=== PATIENT | male | born 1955 | race Caucasian/White ===

== ENCOUNTER 2021-05-30 09:08 | Outpatient (CLI) | payer OTHER, SELFPAY ==
--- NOTE | 2021-05-30 09:23 | MR_ITS ---
WS: [id number] MRI LUMBAR SPINE NONCONTRAST TECHNIQUE: Sagittal T1, T2 and STIR imaging. Axial T1 and T2 imaging. CLINICAL INFORMATION: VERTEBROGENIC LOW BACK PAIN COMPARISON: None. FINDINGS: Mild lumbar curve. No acute compression. Mild disc bulging and osteophytic ridging L3-L4 L4-L5. No ac marin appearing compression fractures. L1-L2: Normal. L2-L3: No significant disc bulging. Mild facet arthropathy. Spinal canal and foramen are patent. L3-L4: Shallow central disc protrusion extending into the LEFT subarticular recess. Impingement on th e traversing LEFT L4 nerve root. Moderate central canal stenosis. Moderate facet arthropathy with lig amentum flavum hypertrophy. Foramen are patent. L4-L5: Mild annular bulging with impingement on the traversing LEFT greater than RIGHT L5 nerve roots . Mild central canal stenosis. Mild RIGHT foraminal narrowing. LEFT foramen is patent. Moderate facet arthropathy with ligamentum flavum flavum hypertrophy. L5-S1: No significant disc bulging. Spinal canal and foramen are patent. Moderate facet arthropathy. Prior postoperative changes C5-C6. Visualized pelvic bony structures: Normal. Paravertebral soft tissues: Normal. Partially visualized aneurysmal infrarenal abdominal aorta measuring 2.4 cm in AP dimension. MR/MR lumbar spine wo con* [id number] IMPRESSION: 1. Mild lumbar curve. No acute compression. 2. Central and LEFT pericentral protrusion L3-L4 with moderate central canal s tenosis and impingement traversing LEFT L4 nerve root in the subarticular reces s. Moderate facet arthropathy with ligamentum flavum hypertrophy contributes to stenosis. 3. Mild central canal stenosis L4-L5 with slight impingement on the traversing LEFT L5 nerve root. 4. Mild RIGHT L4-L5 foraminal narrowing encroaches on the far exiting RIGHT L4 nerve root. 5. Moderate facet arthropathy L3-L5. 6. Partially visualized aneurysmal infrarenal abdominal aorta measuring 2.4 cm in AP dimension. This can be followed up with ultrasound or CTA.
--- NOTE | 2021-05-30 09:25 | XR_ITS ---
WS: [id number] XR lumbar spine f/e only [id number] REASON FOR EXAM: VERTEBROGENIC LOW BACK PAIN FINDINGS: Normal lordosis of the lumbar spine on the lateral view. Lumbar spinal canal appears narrow in the AP dimension. No significant compression deformity or focal vertebral body lesion. Degenerative changes in the facet joints L3-S1. Mild narrowing of the intervertebral disc spaces at L1-L2 L4-L5 and L5-S1. Anterior osteophyte format ion. No spondylolysis and no cysts spondylolisthesis on neutral positioning. With flexion and extension no abnormal vertebral body movement. XR/XR lumbar spine f/e only [id number] IMPRESSION: Narrow AP lumbar spinal canal. Mild degenerative disc disease.
== END 2021-05-30 09:09 | disposition home or self-care (01) ==
PROVIDERS: PCP Family Medicine Adult Medicine; Visit Provider Anesthesiology Pain Medicine
DX: M51.36 Other intervertebral disc degeneration, lumbar region (principal); M51.26 Other intervertebral disc displacement, lumbar region; M47.816 Spondylosis without myelopathy or radiculopathy, lumbar region; I71.4 Abdominal aortic aneurysm, without rupture
CPT/HCPCS: 72120; 72148

== ENCOUNTER → 2021-06-07 10:33 | Outpatient (BNVA) | payer OTHER, SELFPAY | PROVIDERS: PCP Family Medicine Adult Medicine; Visit Provider Family Medicine Adult Medicine | DX: I10 Essential (primary) hypertension (principal); E78.5 Hyperlipidemia, unspecified; Z13.6 Encounter for screening for cardiovascular disorders; L40.50 Arthropathic psoriasis, unspecified; L40.9 Psoriasis, unspecified; Z79.899 Other long term (current) drug therapy | CPT/HCPCS: 80053; 80061; 85025; 86705; 86706; 86709; 86803; 87340; 87806 ==

== ENCOUNTER → 2021-12-11 13:28 | Outpatient (BNVA) | payer OTHER, SELFPAY | PROVIDERS: PCP Family Medicine Adult Medicine; Visit Provider Podiatrist Foot & Ankle Surgery | DX: M77.41 Metatarsalgia, right foot (principal); M24.571 Contracture, right ankle; M21.611 Bunion of right foot | CPT/HCPCS: 73630 ==

== ENCOUNTER → 2022-05-14 10:41 | Outpatient (BNVA) | payer OTHER, SELFPAY | PROVIDERS: PCP Family Medicine Adult Medicine; Visit Provider Internal Medicine | DX: M10.9 Gout, unspecified (principal); L40.50 Arthropathic psoriasis, unspecified; Z79.899 Other long term (current) drug therapy | CPT/HCPCS: 36415; 80053; 85025; 85651; 86140; 86480; 86704; 86803; 87340 ==

== ENCOUNTER 2022-07-19 07:07 | Outpatient (CLI) | payer OTHER, SELFPAY ==
--- NOTE | 2022-07-19 07:30 | US_ITS ---
WS: [id number] RIGHT UPPER QUADRANT ULTRASOUND HISTORY: R74.01 - Elevation of levels of liver transaminase levels COMPARISON: None available. Liver: 18.9 cm in length. Elongated liver. Moderate coarse echotexture. No mass or bile duct dilatati on. Portal Vein: Normal hepatopetal flow with monophasic waveform. Gallbladder: Normally distended gallbladder with no stones or wall thickening. CBD: 0.4 cm Pancreas: Normal size and echogenicity. Right kidney: 11.8 cm in length. Normal size and echogenicity. No hydronephrosis or mass. Aorta and IVC: Mild atherosclerosis aorta with no aneurysm. No ascites. US/US abdomen limited [id number] IMPRESSION: 1. Moderate hepatomegaly and hepatic steatosis. No mass or bile duct dilatatio n. 2. Normal gallbladder. 3. Mild atherosclerosis aorta.
== END 2022-07-19 07:08 | disposition home or self-care (01) ==
PROVIDERS: PCP Family Medicine Adult Medicine; Visit Provider Internal Medicine
DX: R74.01 Elevation of levels of liver transaminase levels (principal); R16.0 Hepatomegaly, not elsewhere classified; K76.0 Fatty (change of) liver, not elsewhere classified; I70.0 Atherosclerosis of aorta
CPT/HCPCS: 76705

== ENCOUNTER → 2022-09-05 15:42 | Outpatient (BNVA) | payer MEDICARE, OTHER, SELFPAY | PROVIDERS: PCP Family Medicine Adult Medicine; Visit Provider Surgery | DX: Z12.11 Encounter for screening for malignant neoplasm of colon (principal) | CPT/HCPCS: 99024; 99203 ==

== ENCOUNTER 2022-10-30 08:39 | Day surgery (SDC) | payer MEDICARE, OTHER, SELFPAY ==
[2022-10-25 10:32] VITALS: BMI 33.7
[2022-10-30 09:09] VITALS: BP 171/100; PULSE 59; RESP 18; TEMP 36.4; O2SAT 98
--- NOTE | 2022-10-30 09:13 | P.ANESASSM_ITS ---
Pre-Anesthetic Assessment Height/Weight: Height 1.78 m Weight 106.594 kg Preop Diagnosis: screening Operation Date: 10/30/22 09:45 Proposed Procedures p Colonoscopy 59066,Z12.11(Not Applicable) - Edu Perez DO Familial anesthetic complications: none Was Beta Nancy taken within 24 hours: Yes Was Clonidine taken within 24 hours: Yes Social No alcohol and No tobacco Exam alert, oriented x 3, clear to auscultation bilaterally and regular rate & rhythm Airway Submandibular: within normal limits Cervical ROM: within normal limits Mallampati: Class II Dentition: full Pulmonary Asthma and Sleep Apnea CV/HEM Hypertension Chronic Renal Insufficiency Hepatic None reported GI None reported Metabolic Hyperlipidemia [facility] Lower Back Pain Neuropsych None reported Anesthetic Plan ASA status: 3 Anesthesia: MAC Risk of > 500 ml blood loss (7ml/kg in children): No Medications/Allergies Home Medications Medication Instructions Recorded Confirmed Last Taken Type menthol 10 % topical gel 1 applic topical DAILY PRN Muscle 02/26/21 10/25/22 10/23/22 History Pain oxycodone 10 mg tablet,crush 10 mg PO 6XD PRN Pain 05/15/21 10/25/22 10/30/22 03:00 History resistant,extended release 12 hr (OxyContin) probenecid 500 mg-colchicine 0.5 1 tab PO BID Gout #180 tabs 03/04/22 10/25/22 10/29/22 Rx mg tablet clonidine HCl 0.1 mg tablet 0.1 mg PO BID blood pressure 90 09/09/22 10/25/22 10/29/22 Rx days #180 tabs fenofibrate micronized 200 mg 200 mg PO DAILY elevated 09/09/22 10/25/22 10/29/22 Rx capsule cholesterol #90 caps metoprolol tartrate 25 mg tablet 25 mg PO BID blood pressure and 09/10/22 10/25/22 10/29/22 Rx heart #180 tabs hydroxyzine HCl 50 mg tablet 50 mg PO BEDTIME insomnia 10/25/22 10/25/22 10/29/22 History prednisone 5 mg tablet 5 mg PO DAILY PRN Pain 10/25/22 10/25/22 10/21/22 History zolpidem 10 mg tablet (Ambien) 10 mg PO BEDTIME PRN insomnia 10/25/22 10/25/22 10/29/22 History Allergies Allergy/AdvReac Type Severity Reaction Status Date / Time No Known Allergies Allergy Verified 09/10/22 15:00 [facility] Anesthesia Medical History (Updated 09/10/22 @ 15:42 by Lamont Pozo MD) Arthritis with psoriasis Bunion of great toe of right foot Cervical fusion syndrome Chronic pain Chronic neck and vertebrogenic low back pain, Dr. [facility] CKD (chronic kidney disease) stage 2, GFR 60-89 ml/min Gout Hepatomegaly High risk medication use HTN (hypertension) Hyperlipemia Insomnia Medication care plan discussed with primary care provider Morbid obesity with BMI of 45.0-49.9, adult NATALYA (obstructive sleep apnea) History of inability to tolerate CPAP device. Transaminitis Visit for well [facility] check Surgical History (Updated 09/10/22 @ 15:42 by Lamont Pozo MD) H/O vasectomy History of fusion of cervical spine Hx of colonoscopy 10years ago , no polyps Hx of esophagogastroduodenoscopy 35 years ago Family History Father [place]' lung Mother Cancer Other Hyperlipidemia Social History Smoking and tobacco status: never smoked Alcohol intake: never Substance/Drug Use: never Marital status: Single Current occupational status: retired Data Anesthesia Cardiac Studies: No Data to Display
[2022-10-30] MEDS: sodium chloride 0.9% 1,000 ML 30 ML IV (09:32)
--- NOTE | 2022-10-30 10:18 | PM.HP ---
Providers/Chief Complaint Primary Care Provider: Lamont Pozo MD Chief Complaint: Z12.11 History of Present Illness Isak Jay is a 67 year old male Medications/Allergies Home Medications Medication Instructions Recorded Confirmed Last Taken Type menthol 10 % topical gel 1 applic topical DAILY PRN Muscle 02/26/21 10/25/22 10/23/22 History Pain oxycodone 10 mg tablet,crush 10 mg PO 6XD PRN Pain 05/15/21 10/25/22 10/30/22 03:00 History resistant,extended release 12 hr (OxyContin) probenecid 500 mg-colchicine 0.5 1 tab PO BID Gout #180 tabs 03/04/22 10/25/22 10/29/22 Rx mg tablet clonidine HCl 0.1 mg tablet 0.1 mg PO BID blood pressure 90 09/09/22 10/25/22 10/29/22 Rx days #180 tabs fenofibrate micronized 200 mg 200 mg PO DAILY elevated 09/09/22 10/25/22 10/29/22 Rx capsule cholesterol #90 caps metoprolol tartrate 25 mg tablet 25 mg PO BID blood pressure and 09/10/22 10/25/22 10/29/22 Rx heart #180 tabs hydroxyzine HCl 50 mg tablet 50 mg PO BEDTIME insomnia 10/25/22 10/25/22 10/29/22 History prednisone 5 mg tablet 5 mg PO DAILY PRN Pain 10/25/22 10/25/22 10/21/22 History zolpidem 10 mg tablet (Ambien) 10 mg PO BEDTIME PRN insomnia 10/25/22 10/25/22 10/29/22 History Allergies Allergy/AdvReac Type Severity Reaction Status Date / Time No Known Allergies Allergy Verified 09/10/22 15:00 PFSH Acute PFSH: Medical History (Updated 10/30/22 @ 10:18 by Edu Perez DO) Arthritis with psoriasis Bunion of great toe of right foot Cervical fusion syndrome Chronic pain Chronic neck and vertebrogenic low back pain, Dr. [facility] CKD (chronic kidney disease) stage 2, GFR 60-89 ml/min Gout Hepatomegaly High risk medication use HTN (hypertension) Hyperlipemia Insomnia Medication care plan discussed with primary care provider Morbid obesity with BMI of 45.0-49.9, adult NATALYA (obstructive sleep apnea) History of inability to tolerate CPAP device. Transaminitis Visit for well [facility] check Surgical History (Updated 09/10/22 @ 15:42 by Lamont Pozo MD) H/O vasectomy History of fusion of cervical spine Hx of colonoscopy 10years ago , no polyps Hx of esophagogastroduodenoscopy 35 years ago Family History Father [place]' lung Mother Cancer Other Hyperlipidemia Social History Smoking and tobacco status: never smoked Alcohol intake: never Substance/Drug Use: never Marital status: Single Current occupational status: retired Vitals/I&O/Wt Last Vital Signs Temp 97.5 F L 10/30/22 09:09 Pulse 59 L 10/30/22 09:09 Resp 18 10/30/22 09:09 BP 171/100 10/30/22 09:09 Pulse Ox 98 10/30/22 09:09 O2 Del Method Room Air 10/30/22 09:09 A&P Assessment and plan (1) Colon cancer screening: Plan Colonoscopy Attestations Medical Necessity Statement*: Home Coding Level of Care Code Acute Code for Chg Fwd Diagnoses Colon cancer screening Z12.11
[2022-10-30 10:39] VITALS: BP 133/88; PULSE 68; RESP 18; TEMP 36.4; O2SAT 97
[2022-10-30 10:46] VITALS: BP 134/86; PULSE 73; RESP 18; O2SAT 97
--- NOTE | 2022-10-30 11:05 | ANE.PACU2 ---
Inpatient post-anesthesia follow up: Airway intact: Yes Vital signs: Temperature 97.6 F Pulse Rate 73 Respiratory Rate 18 Blood Pressure 134/86 Pulse Oximetry 97 Oxygen Delivery Me thod Room Air Oxygen Flow Rate Fraction of Inspir ed Oxygen Hydration adequate: Yes Nausea and vomiting: No Pain level: 1 Mental status: Baseline
== END 2022-10-30 11:04 | disposition home or self-care (01) ==
PROVIDERS: PCP Family Medicine Adult Medicine; Visit Provider Surgery
PROC: 0DJD8ZZ Inspection of Lower Intestinal Tract, Via Natural or Artificial Opening Endoscopic (ICD-10-PCS; CPT 45378; principal; 2022-10-30 09:45)
DX: Z12.11 Encounter for screening for malignant neoplasm of colon (principal); K63.5 Polyp of colon; I12.9 Hypertensive chronic kidney disease with stage 1 through stage 4 chronic kidney disease, or unspecified chronic kidney disease; N18.2 Chronic kidney disease, stage 2 (mild); E78.5 Hyperlipidemia, unspecified; G47.33 Obstructive sleep apnea (adult) (pediatric); E66.01 Morbid (severe) obesity due to excess calories; Z68.33 Body mass index [BMI] 33.0-33.9, adult; G47.30 Sleep apnea, unspecified
CPT/HCPCS: 45385; 88305; J2704; J7030

== ENCOUNTER → 2022-11-05 10:18 | Outpatient (BNVA) | payer MEDICARE, OTHER, SELFPAY | PROVIDERS: PCP Family Medicine Adult Medicine; Visit Provider Internal Medicine | DX: R74.01 Elevation of levels of liver transaminase levels (principal); M77.8 Other enthesopathies, not elsewhere classified | CPT/HCPCS: 36415; 73560; 80053; 85025; 85651; 86140 ==

== ENCOUNTER → 2023-04-21 14:26 | Outpatient (BNVA) | payer MEDICARE, OTHER, SELFPAY | PROVIDERS: PCP Family Medicine Adult Medicine; Visit Provider Nurse Practitioner Family | DX: L40.0 Psoriasis vulgaris (principal); L57.0 Actinic keratosis; L81.4 Other melanin hyperpigmentation; L57.8 Other skin changes due to chronic exposure to nonionizing radiation; L40.59 Other psoriatic arthropathy | CPT/HCPCS: 17004; 99214 ==

== ENCOUNTER 2023-04-24 10:03 | Outpatient (CLI) | payer MEDICARE, OTHER, SELFPAY ==
[2023-04-24 10:41] LABS: Basophils % 0.4 %; Eosinophils # 0.1 10^3/uL (0.0-0.8); Eosinophils % 1.8 %; Lymphocytes % 25.2 %; Mean Corpuscular HGB Conc 34.2 g/dL (30-55); Mean Corpuscular Volume 96.6 fl (82-101); Mean Platelet Volume 9.7 fL (7.4-10.4); Monocytes # 1.4 10^3/uL (0.2-0.9); Monocytes % 17.4 %; Neutrophils # 4.25 10^3/uL (1.8-7.7); Neutrophils % 54.9 %; Nucleated Red Blood Cells % 0 %; Platelet Count 174 10^3/cmm (157-399); Red Blood Count 4.45 10^6/uL (3.85-5.65); Red Cell Distribution Width 14.5 % (12.1-15.1); White Blood Count 7.74 10^3/uL (3.29-11.43)
[2023-04-24 11:05] LABS: Alanine Aminotransferase 61 U/L (0-41); Albumin Level 4.2 g/dL (3.5-5.2); Alkaline Phosphatase 72 U/L (40-130); Aspartate Amino Transferase 61 U/L (0-40); Globulin 2.6 g/dL (1.3-4.6); Glomerular Filtration Rate 67.2 mL/min (90-130); Total Bilirubin 0.5 mg/dL (0.15-1.2); Total Protein 6.8 g/dL (6.6-8.7)
== END 2023-04-24 10:04 | disposition home or self-care (01) ==
LOC: LAB 10:04
PROVIDERS: PCP Family Medicine Adult Medicine; Visit Provider Internal Medicine Rheumatology
DX: L40.50 Arthropathic psoriasis, unspecified (principal); R74.01 Elevation of levels of liver transaminase levels; Z79.899 Other long term (current) drug therapy
CPT/HCPCS: 36415; 80076; 82565; 85025; 86140

== ENCOUNTER → 2023-09-24 09:45 | Outpatient (BNVA) | payer MEDICARE, OTHER, SELFPAY | PROVIDERS: PCP Family Medicine Adult Medicine; Visit Provider Internal Medicine Rheumatology | DX: L40.50 Arthropathic psoriasis, unspecified (principal); M10.9 Gout, unspecified; L40.0 Psoriasis vulgaris; Z79.899 Other long term (current) drug therapy | CPT/HCPCS: 99215 ==

== ENCOUNTER → 2023-10-20 08:04 | Outpatient (BNVA) | payer MEDICARE, OTHER, SELFPAY | PROVIDERS: PCP Family Medicine Adult Medicine; Visit Provider Nurse Practitioner Family | DX: L40.0 Psoriasis vulgaris (principal); L40.59 Other psoriatic arthropathy; L81.4 Other melanin hyperpigmentation; L57.8 Other skin changes due to chronic exposure to nonionizing radiation; L57.0 Actinic keratosis; L21.8 Other seborrheic dermatitis | CPT/HCPCS: 17000; 99214 ==

== ENCOUNTER 2023-10-23 10:00 | Oncology outpatient (recurring) (ONCR) | payer MEDICARE, OTHER, SELFPAY ==
[2023-10-09 10:37] VITALS: BP 145/85; PULSE 71; RESP 18; TEMP 36.7; O2SAT 96
[2023-10-09 10:56] LABS: Basophils % 0.5 %; Eosinophils # 0.1 10^3/uL (0.0-0.8); Eosinophils % 1.3 %; Hematocrit 44.9 % (37-53); Lymphocytes # 2.5 10^3/uL (0.8-4.8); Lymphocytes % 39.6 %; Mean Corpuscular HGB Conc 34.7 g/dL (30-55); Mean Corpuscular Volume 97.8 fl (82-101); Mean Platelet Volume 9.8 fL (7.4-10.4); Monocytes # 0.7 10^3/uL (0.2-0.9); Monocytes % 10.3 %; Neutrophils # 3.01 10^3/uL (1.8-7.7); Neutrophils % 47.8 %; Nucleated Red Blood Cells % 0 %; Platelet Count 171 10^3/cmm (157-399); Red Blood Count 4.59 10^6/uL (3.85-5.65); Red Cell Distribution Width 14.2 % (12.1-15.1); White Blood Count 6.29 10^3/uL (3.29-11.43)
[2023-10-09 10:59] LABS: Erythrocyte Sedimentation Rate 1 mm/hr (0-10)
[2023-10-09] MEDS: sodium chloride 0.9% 250 ML 75 ML IV (11:04)
[2023-10-09] MEDS: diphenhydrAMINE 50 mg/mL SDV 1mL 25 MG IVP (11:04)
[2023-10-09] MEDS: acetaminophen 325 mg Tablet 650 MG PO (11:04)
[2023-10-09] MEDS: abatacept 500 MG in sodium chloride 0.9% (100 ml) 100 ML 200 MG IV (11:38)
[2023-10-09 11:41] LABS: Albumin Level 4.3 g/dL (3.5-5.2); Alkaline Phosphatase 93 U/L (40-130); Globulin 3.1 g/dL (1.3-4.6); Glomerular Filtration Rate 55.2 mL/min (90-130); Total Bilirubin 0.3 mg/dL (0.15-1.2); Total Protein 7.4 g/dL (6.6-8.7)
[2023-10-09 11:42] LABS: Alanine Aminotransferase 65 U/L (0-41); Aspartate Amino Transferase 63 U/L (0-40)
[2023-10-09 12:35] VITALS: BP 136/76; PULSE 60; RESP 17; TEMP 36.6; O2SAT 97
[2023-10-23 10:04] VITALS: BP 127/80; PULSE 80; RESP 16; TEMP 36.6; O2SAT 96
[2023-10-23] MEDS: sodium chloride 0.9% 250 ML 75 ML IV (10:52)
[2023-10-23] MEDS: acetaminophen 325 mg Tablet 650 MG PO (10:52)
[2023-10-23] MEDS: diphenhydrAMINE 50 mg/mL SDV 1mL 25 MG IVP (10:53)
[2023-10-23] MEDS: abatacept 500 MG in sodium chloride 0.9% (100 ml) 100 ML 200 MG IV (11:33)
[2023-10-23 12:22] VITALS: BP 127/82; PULSE 84; RESP 17; TEMP 36.2; O2SAT 96
== END 2023-10-25 23:59 | disposition home or self-care (01) ==
PROVIDERS: PCP Family Medicine Adult Medicine; Visit Provider Internal Medicine Rheumatology
DX: Z79.899 Other long term (current) drug therapy (principal); L40.50 Arthropathic psoriasis, unspecified
CPT/HCPCS: 80076; 82565; 85025; 85651; 96365; 96375; A4222; J0129; J1200; J7050

== ENCOUNTER 2023-11-06 09:50 | Oncology outpatient (recurring) (ONCR) | payer MEDICARE, OTHER, SELFPAY | END 2023-11-24 23:59 | disposition home or self-care (01) | PROVIDERS: PCP Family Medicine Adult Medicine; Visit Provider Internal Medicine Rheumatology | DX: Z53.9 Procedure and treatment not carried out, unspecified reason (principal) ==

== ENCOUNTER → 2023-12-31 12:55 | Outpatient (BNVA) | payer MEDICARE, OTHER, SELFPAY | PROVIDERS: PCP Family Medicine Adult Medicine; Visit Provider Internal Medicine Rheumatology | DX: L40.50 Arthropathic psoriasis, unspecified (principal); Z79.899 Other long term (current) drug therapy; M10.9 Gout, unspecified; L40.0 Psoriasis vulgaris | CPT/HCPCS: 36415; 80076; 82565; 85025; 85651; 86140; 99214 ==

== ENCOUNTER 2024-03-08 12:55 | Outpatient (CLI) | payer MEDICARE, OTHER, SELFPAY | END 2024-03-08 12:56 | disposition home or self-care (01) | LOC: SLEEP 12:58 | PROVIDERS: PCP Family Medicine Adult Medicine; Visit Provider Otolaryngology | DX: G47.33 Obstructive sleep apnea (adult) (pediatric) (principal) | CPT/HCPCS: G0399 ==

== ENCOUNTER 2024-04-01 15:36 | Outpatient (CLI) | payer MEDICARE, OTHER, SELFPAY ==
[2024-04-01 16:16] LABS: Basophils % 0.6 %; Eosinophils # 0.2 10^3/uL (0.0-0.8); Eosinophils % 2.6 %; Hematocrit 48.2 % (37-53); Lymphocytes # 2.5 10^3/uL (0.8-4.8); Lymphocytes % 35.9 %; Mean Corpuscular Volume 94.1 fl (82-101); Mean Platelet Volume 10.1 fL (7.4-10.4); Monocytes # 0.9 10^3/uL (0.2-0.9); Monocytes % 13.2 %; Neutrophils # 3.27 10^3/uL (1.8-7.7); Neutrophils % 47.4 %; Nucleated Red Blood Cells % 0 %; Platelet Count 185 10^3/cmm (157-399); Red Blood Count 5.12 10^6/uL (3.85-5.65); Red Cell Distribution Width 13.7 % (12.1-15.1)
[2024-04-01 16:23] LABS: Erythrocyte Sedimentation Rate 2 mm/hr (0-10)
[2024-04-01 17:06] LABS: Alanine Aminotransferase 35 U/L (0-41); Albumin Level 4.5 g/dL (3.5-5.2); Alkaline Phosphatase 67 U/L (40-130); Aspartate Amino Transferase 40 U/L (0-40); Globulin 3.1 g/dL (1.3-4.6); Total Bilirubin 0.4 mg/dL (0.15-1.2); Total Protein 7.6 g/dL (6.6-8.7)
== END 2024-04-01 15:37 | disposition home or self-care (01) ==
LOC: LAB 15:46
PROVIDERS: PCP Family Medicine Adult Medicine; Visit Provider Internal Medicine Rheumatology
DX: L40.50 Arthropathic psoriasis, unspecified (principal); Z79.899 Other long term (current) drug therapy
CPT/HCPCS: 36415; 80076; 82565; 85025; 85651; 86140

== ENCOUNTER → 2024-05-05 13:05 | Outpatient (BNVA) | payer MEDICARE, OTHER, SELFPAY | PROVIDERS: PCP Family Medicine Adult Medicine; Visit Provider Internal Medicine Rheumatology | DX: L57.8 Other skin changes due to chronic exposure to nonionizing radiation (principal); L82.0 Inflamed seborrheic keratosis; L53.8 Other specified erythematous conditions; R20.8 Other disturbances of skin sensation; L29.89 Other pruritus; Z78.9 Other specified health status; R58 Hemorrhage, not elsewhere classified; L40.50 Arthropathic psoriasis, unspecified; M10.9 Gout, unspecified; L40.0 Psoriasis vulgaris; Z79.899 Other long term (current) drug therapy | CPT/HCPCS: 17000; 17110; 99213; 99214 ==

== ENCOUNTER 2024-08-05 11:32 | Outpatient (CLI) | payer MEDICARE, OTHER, SELFPAY ==
[2024-08-05 11:48] LABS: Basophils % 0.7 %; Eosinophils # 0.3 10^3/uL (0.0-0.8); Eosinophils % 5.8 %; Hematocrit 42.4 % (37-53); Lymphocytes # 2.5 10^3/uL (0.8-4.8); Lymphocytes % 42.9 %; Mean Corpuscular HGB Conc 34.2 g/dL (30-55); Mean Corpuscular Hemoglobin 32.8 pg (27-33); Mean Corpuscular Volume 95.9 fl (82-101); Mean Platelet Volume 9.3 fL (7.4-10.4); Monocytes # 0.9 10^3/uL (0.2-0.9); Monocytes % 14.8 %; Neutrophils # 2.07 10^3/uL (1.8-7.7); Neutrophils % 35.3 %; Nucleated Red Blood Cells % 0 %; Platelet Count 175 10^3/cmm (157-399); Red Blood Count 4.42 10^6/uL (3.85-5.65); Red Cell Distribution Width 14.3 % (12.1-15.1); White Blood Count 5.87 10^3/uL (3.29-11.43)
[2024-08-05 11:53] LABS: Erythrocyte Sedimentation Rate < 1 mm/hr (0-10)
[2024-08-05 12:10] LABS: Alanine Aminotransferase 50 U/L (0-41); Albumin Level 4.1 g/dL (3.5-5.2); Alkaline Phosphatase 72 U/L (40-130); Aspartate Amino Transferase 58 U/L (0-40); Bilirubin Direct 0.19 mg/dL (0.00-0.30); Globulin 2.7 g/dL (1.3-4.6); Glomerular Filtration Rate 60.6 mL/min (90-130); Total Bilirubin 0.4 mg/dL (0.15-1.2); Total Protein 6.8 g/dL (6.6-8.7)
== END 2024-08-05 11:33 | disposition home or self-care (01) ==
PROVIDERS: PCP Family Medicine; Visit Provider Internal Medicine Rheumatology
DX: Z79.899 Other long term (current) drug therapy (principal)
CPT/HCPCS: 36415; 80076; 82565; 85025; 85651; 86140

== ENCOUNTER → 2024-08-18 13:46 | Outpatient (BNVA) | payer MEDICARE, OTHER, SELFPAY | PROVIDERS: PCP Family Medicine Adult Medicine; Visit Provider Internal Medicine Rheumatology | DX: L40.50 Arthropathic psoriasis, unspecified (principal); M10.9 Gout, unspecified; L40.0 Psoriasis vulgaris; Z79.899 Other long term (current) drug therapy; I10 Essential (primary) hypertension | CPT/HCPCS: 36415; 82306; 82607; 84403; 84439; 84443; 99214 ==

== ENCOUNTER 2024-09-21 12:56 | Outpatient (CLI) | payer MEDICARE, OTHER, SELFPAY ==
--- NOTE | 2024-09-21 13:00 | MR_ITS ---
WS: [id number] MRI CERVICAL SPINE NONCONTRAST HISTORY: CERVICAL RADICULOPATHY COMPARISON: None available. Technique: Multiplanar, multisequence noncontrast imaging of the cervical spine. Straightening of the normal cervical lordosis. Anterior cervical fusion at C5-6. Interbody spacer at C5-6. No acute fracture or marrow edema. Signal within the cervical cord is normal. Visualized posterior fossa is unremarkable. Craniocervical junction, C1 and C2 relationship, odontoid process and soft tissues are normal. C2-C3: Normal. C3-C4: Mild disc bulging and osteophytic ridging. Mild foraminal stenosis. C4-C5: Diffuse annular disc bulge with a central disc protrusion and osteophytic ridging and facet arthritis. Mild central stenosis. Effacement of ventral CSF. No foraminal stenosis. C5-C6: Mild disc bulging. Mild facet arthritis. No stenosis. C6-C7: Diffuse annular disc bulging with osteophytic ridging. Mild effacement of ventral CSF. Mild to moderate bilateral foraminal stenosis due to disc osteophyte and facet disease. Slightly greater narrowing RIGHT foramen. C7-T1: Mild facet joint arthropathy. No stenosis. Paraspinal soft tissue are normal. MR/MR cervical spin wo con* [id number] IMPRESSION: 1. Prior anterior cervical fusion with interbody spacer at C5-6. 2. C4-5: Central disc protrusion with mild central stenosis. No foraminal sten osis. 3. C6-7: Mild to moderate bilateral foraminal stenosis due to disc osteophyte and facet disease. Slightly greater narrowing RIGHT foramen.
--- NOTE | 2024-09-21 13:45 | MR_ITS ---
WS: [id number] MRI THORACIC SPINE noncontrast HISTORY: THORACIC RADICULOPATHY COMPARISON: None available. TECHNIQUE: Multiplanar sequences are performed in sagittal and axial planes. Mild increase in thoracic kyphosis. T7-8: Moderate size central disc protrusion completely effacing CSF and contacting the cord. There is a larger cyst LEFT paracentral component of the disc deforming the LEFT lateral thecal sac. There is a small amount of edema along the ventral surface of the cord. Mild facet joint arthropathy throughout the thoracic spine. Moderate facet joint arthropathy T9-10, T10-11 and T11-12. Bilateral mild foraminal stenosis at T9-10 and moderate at T10-11 due to facet disease predominantly. Moderate foraminal stenosis at T11-12. Paraspinal soft tissues are normal. MR/MR thoracic spin wo con* [id number] IMPRESSION: 1. Moderate size central disc protrusion at T7-8 with a larger component LEFT paracentral. Disc is displacing and deforming the ventral cord. 2. Facet joint arthropathy throughout the thoracic spine, most significant at T9-10, T10-11 and T11-12. 3. Mild bilateral foraminal stenosis at T9-10, moderate at T10-11 and T11-12.
--- NOTE | 2024-09-21 14:30 | MR_ITS ---
WS: [id number] MRI LUMBAR SPINE NONCONTRAST HISTORY: LUMBAR RADICULOPATHY COMPARISON: 05/30/2021 TECHNIQUE: Sagittal and axial multisequence imaging is submitted. Normal lumbar alignment Mild disc space narrowing and desiccation at L3-4 and L4-5. No fractures or marrow edema. [place] Schmorl's node defect superior endplate of L4. Conus terminates normally at L1. L1-L2: Mild disc bulging and facet arthritis. No stenosis. L2-L3: Mild annular disc bulging encroaching upon the ventral thecal sac with facet joint arthropathy. No change. No stenosis. L3-L4: Diffuse annular disc bulging with osteophytic ridging. Central disc protrusion with annular fissure. Complete effacement of CSF. Marked ligamentum flavum and facet arthritis. Moderate to severe central canal stenosis and bilateral subarticular recess stenosis. Encroachment upon the traversing L4 nerve roots. Very mild RIGHT and no LEFT foraminal stenosis. Shallow RIGHT foraminal disc protrusion. L4-L5: Diffuse annular disc bulging with osteophytic ridging. There is mild disc contact on the traversing L5 nerve roots. Mild progression of central stenosis since the prior study. Ligamentum flavum and facet arthritis. Moderate central, bilateral subarticular recess and mild foraminal stenosis. L5-S1: No stenosis. Moderate facet arthritis. Paravertebral soft tissues are normal. MR/MR lumbar spine wo con* [id number] IMPRESSION: 1. L3-4: Central disc protrusion with annular disc bulging and facet arthritis . Moderate to severe central and bilateral subarticular recess stenosis. Mild R IGHT and no LEFT foraminal stenosis. Mild disc contact on the traversing L4 ner ve roots. Additional shallow RIGHT foraminal disc protrusion. Findings have pro gressed slightly since the prior study. 2. L4-5: Moderate central, bilateral subarticular recess and mild foraminal st enosis. Disc contacts the traversing L5 nerve roots. Mild progression of centra l stenosis since 2021. 3. Moderate facet joint arthropathy at L5-S1.
== END 2024-09-21 12:57 | disposition home or self-care (01) ==
LOC: RAD 12:58
PROVIDERS: PCP Family Medicine; Visit Provider Student in an Organized Health Care Education/Training Program
DX: M51.87 Other intervertebral disc disorders, lumbosacral region (principal); M47.817 Spondylosis without myelopathy or radiculopathy, lumbosacral region; M46.94 Unspecified inflammatory spondylopathy, thoracic region; M51.369 Other intervertebral disc degeneration, lumbar region without mention of lumbar back pain or lower extremity pain; M47.26 Other spondylosis with radiculopathy, lumbar region; M48.061 Spinal stenosis, lumbar region without neurogenic claudication; M51.26 Other intervertebral disc displacement, lumbar region; M51.04 Intervertebral disc disorders with myelopathy, thoracic region; M48.04 Spinal stenosis, thoracic region; M50.022 Cervical disc disorder at C5-C6 level with myelopathy; Z98.1 Arthrodesis status; M50.221 Other cervical disc displacement at C4-C5 level; M48.02 Spinal stenosis, cervical region; M50.323 Other cervical disc degeneration at C6-C7 level; M47.892 Other spondylosis, cervical region; M99.63 Osseous and subluxation stenosis of intervertebral foramina of lumbar region
CPT/HCPCS: 72141; 72146; 72148

== ENCOUNTER → 2024-10-19 14:46 | Outpatient (BNVA) | payer MEDICARE, OTHER, SELFPAY | PROVIDERS: PCP Family Medicine; Visit Provider Orthopaedic Surgery | DX: M48.062 Spinal stenosis, lumbar region with neurogenic claudication (principal); M51.34 Other intervertebral disc degeneration, thoracic region; M48.061 Spinal stenosis, lumbar region without neurogenic claudication; M48.02 Spinal stenosis, cervical region | CPT/HCPCS: 72050; 72072; 72110; 99203 ==

== ENCOUNTER → 2024-11-09 09:22 | Outpatient (BNVA) | payer MEDICARE, OTHER, SELFPAY | PROVIDERS: PCP Family Medicine; Visit Provider Nurse Practitioner Family | DX: B86 Scabies (principal); L81.4 Other melanin hyperpigmentation; L57.8 Other skin changes due to chronic exposure to nonionizing radiation; L40.0 Psoriasis vulgaris; L29.89 Other pruritus; L40.59 Other psoriatic arthropathy; Z79.899 Other long term (current) drug therapy; L57.0 Actinic keratosis | CPT/HCPCS: 17000; 99214 ==

== ENCOUNTER 2024-12-23 14:05 | Outpatient (CLI) | payer MEDICARE, OTHER, SELFPAY ==
[2024-12-23 14:30] LABS: Hematocrit 48.5 % (37-53); Hemoglobin 16.70 g/dL (11.27-16.99); Mean Corpuscular HGB Conc 34.4 g/dL (30-55); Mean Corpuscular Hemoglobin 32.1 pg (27-33); Mean Corpuscular Volume 93.1 fl (82-101); Nucleated Red Blood Cells % 0 %; Platelet Count 194 10^3/cmm (157-399); Red Blood Count 5.21 10^6/uL (3.85-5.65); White Blood Count 6.58 10^3/uL (3.29-11.43)
[2024-12-23 14:57] LABS: Alanine Aminotransferase 40 U/L (0-41); Albumin Level 4.5 g/dL (3.5-5.2); Alkaline Phosphatase 71 U/L (40-130); Globulin 2.9 g/dL (1.3-4.6); Total Protein 7.4 g/dL (6.6-8.7)
[2024-12-23 15:29] LABS: Aspartate Amino Transferase 42 U/L (0-40)
== END 2024-12-23 14:06 | disposition home or self-care (01) ==
LOC: LAB 14:06
PROVIDERS: PCP Family Medicine; Visit Provider Internal Medicine Rheumatology
DX: Z79.899 Other long term (current) drug therapy (principal)
CPT/HCPCS: 36415; 80076; 82565; 85025; 85651; 86140

== ENCOUNTER → 2025-01-03 13:28 | Outpatient (BNVA) | payer MEDICARE, OTHER, SELFPAY | PROVIDERS: PCP Family Medicine; Visit Provider Internal Medicine Rheumatology | DX: L40.0 Psoriasis vulgaris (principal); M10.9 Gout, unspecified; L40.50 Arthropathic psoriasis, unspecified; Z79.899 Other long term (current) drug therapy | CPT/HCPCS: 99214 ==

== ENCOUNTER 2025-02-02 12:45 | Outpatient (CLI) | payer MEDICARE, OTHER, SELFPAY ==
[2025-02-02 13:21] LABS: Hematocrit 47.3 % (37-53); Hemoglobin 16.20 g/dL (11.27-16.99); Mean Corpuscular HGB Conc 34.2 g/dL (30-55); Mean Corpuscular Hemoglobin 31.8 pg (27-33); Mean Corpuscular Volume 92.9 fl (82-101); Nucleated Red Blood Cells % 0 %; Platelet Count 159 10^3/cmm (157-399); Red Blood Count 5.09 10^6/uL (3.85-5.65); White Blood Count 7.66 10^3/uL (3.29-11.43)
[2025-02-02 13:37] LABS: Alanine Aminotransferase 37 U/L (0-41); Albumin Level 4.3 g/dL (3.5-5.2); Alkaline Phosphatase 70 U/L (40-130); Aspartate Amino Transferase 45 U/L (0-40); Globulin 2.8 g/dL (1.3-4.6); Total Protein 7.1 g/dL (6.6-8.7)
== END 2025-02-02 12:46 | disposition home or self-care (01) ==
LOC: LAB 12:47
PROVIDERS: PCP Family Medicine; Visit Provider Internal Medicine Rheumatology
DX: L40.0 Psoriasis vulgaris (principal); Z79.899 Other long term (current) drug therapy
CPT/HCPCS: 36415; 80076; 82565; 85025; 85651; 86140